=== PATIENT | male | born 1990 | race Caucasian/White ===

== ENCOUNTER 2017-01-05 23:16 | Inpatient (IN) | payer SELFPAY ==
[~2017-01-05] VITALS: Ht 182.9 cm; Wt 206.4 kg
[2017-01-06] VITALS (55 sets, daily range): BP systolic 120–166; BP diastolic 29–100
[2017-01-06 00:45] LABS: Basophils # (auto) 0.1 uL; Basophils % (auto) 0.6 % (0.0-2.0); CONDITION Y; DEFINITIVE SEE PRINTOUT; Eosinophils # (auto) 0.3 uL; Eosinophils % (auto) 2.3 % (0.0-7.0); Hematocrit 46.2 % (41.0-53.0); Hemoglobin 15.3 g/dL (13.5-17.5); Lymphocytes # (auto) 2.5 uL; Lymphocytes % (auto) 19.7 % (10.0-50.0); Mean Corpuscular Hemoglobin 26.1 pg (28.0-32.0); Mean Corpuscular Hgb Conc. 33.1 g/dL (32.0-36.0); Mean Corpuscular Volume 78.8 fL (80.0-100.0); Mean Platelet Volume 12.7 fL (7.4-10.4); Monocytes # (auto) 0.5 uL; Monocytes % (auto) 3.9 % (0.0-12.0); Neutrophils # (auto) 9.2 uL; Neutrophils % (auto) 73.5 % (37.0-80.0); Platelet Count (auto) 187 10^3/uL (140-450); Red Cell Distribution Width 17.1 % (11.6-16.0); White Blood Cell 12.5 10^3/uL (4.4-10.8)
[2017-01-06 00:59] LABS: Albumin 3.3 g/dL (3.4-5.0); BUN/Creatinine Ratio 8.9; Calcium 8.1 mg/dL (8.5-10.1)
[2017-01-06] MEDS ORDERED: SODIUM CHLORIDE 0.9% 1,000 ML IV ONE ×2 (01:00→01:15)
[2017-01-06 01:01] LABS: Bilirubin, Total 1.1 mg/dL (0.2-1.0); Total Protein 7.5 g/dL (6.4-8.2)
[2017-01-06 01:06] LABS: Potassium 2.5 mmol/L (3.5-5.1)
[2017-01-06] MEDS ORDERED: POTASSIUM CHL 20 Meq TABLET PO ONE ×2 (01:15→19:30)
[2017-01-06] MEDS: POTASSIUM CHL 20MEQ/100ML 100 ML IV SCH ×4 (01:30→14:01)
[2017-01-06 02:02] LABS: Urine Bilirubin Negative (Negative); Urine Blood Negative /uL (Negative); Urine Color Yellow (Yellow); Urine Glucose Normal (Normal); Urine Ketone Negative (Negative); Urine Nitrite Negative (Negative); Urine RBC 2 /hpf (0 - 3); Urine Urobilinogen Normal (Negative)
[2017-01-06] MEDS ORDERED: cloNIDine HCL 0.1 MG TAB PO ONE (03:15)
[2017-01-06] MEDS ORDERED: hydrALAZINE HCL 20 MG/ML VL IV ONE (05:30)
[2017-01-06] MEDS ORDERED: NITROGLYCERIN 0.4 MG SL TAB SL PRN (06:00)
[2017-01-06] MEDS ORDERED: POTASSIUM CHL 20MEQ/100ML 100 ML IV ONE ×2 (06:00→20:15)
[2017-01-06] MEDS ORDERED: MORPHINE SULF INJ 2 MG/ML SYRINGE 1ML IV PRN ×2 (06:00→06:15)
[2017-01-06] MEDS ORDERED: ONDANSETRON HCL 4 MG/2 ML VIAL IV PRN (06:15)
[2017-01-06] MEDS ORDERED: HYDROcodone-ACET 5/325MG TAB PO PRN (06:15)
[2017-01-06] MEDS ORDERED: ACETAMINOPHEN 500 MG TAB PO PRN (06:15)
[2017-01-06] MEDS ORDERED: NICARDIPINE 25MG/250ML BAG KIT 250 ML IV ONE (06:25)
[2017-01-06] MEDS: NICARDIPINE 25MG/250ML BAG KIT 250 ML IV SCH ×3 (06:45→16:22)
[2017-01-06] MEDS: cloNIDine HCL 0.1 MG TAB PO PRN (17:41)
[2017-01-07] VITALS (38 sets, daily range): BP systolic 131–166; BP diastolic 76–111
[2017-01-07 01:25] LABS: B-Type Natriuretic Peptide 36.6 pg/mL (0-100); Temperature: 22.2 C (20.0-25.0)
[2017-01-07] MEDS: NICARDIPINE 25MG/250ML BAG KIT 250 ML IV SCH ×3 (02:22→07:22)
[2017-01-07 02:51] LABS: Basophils # (auto) 0.1 uL; Basophils % (auto) 0.6 % (0.0-2.0); CONDITION Y; DEFINITIVE SEE PRINTOUT; Eosinophils # (auto) 0.4 uL; Eosinophils % (auto) 4.7 % (0.0-7.0); Hematocrit 44.9 % (41.0-53.0); Hemoglobin 14.7 g/dL (13.5-17.5); Lymphocytes # (auto) 2.4 uL; Lymphocytes % (auto) 26.5 % (10.0-50.0); Mean Corpuscular Hgb Conc. 32.7 g/dL (32.0-36.0); Mean Corpuscular Volume 79.5 fL (80.0-100.0); Mean Platelet Volume 11.1 fL (7.4-10.4); Monocytes # (auto) 0.5 uL; Neutrophils # (auto) 5.8 uL; Neutrophils % (auto) 63.2 % (37.0-80.0); Platelet Count (auto) 191 10^3/uL (140-450); Red Cell Distribution Width 17.5 % (11.6-16.0); White Blood Cell 9.2 10^3/uL (4.4-10.8)
[2017-01-07 03:28] LABS: BUN/Creatinine Ratio 9.2; Calcium 7.8 mg/dL (8.5-10.1)
[2017-01-07 03:39] LABS: Potassium 3.6 mmol/L (3.5-5.1)
[2017-01-07] MEDS: cloNIDine HCL 0.1 MG TAB PO PRN ×2 (04:12→17:17)
[2017-01-07] MEDS ORDERED: POTASSIUM CHL 20MEQ/100ML 100 ML IV ONE (04:15)
[2017-01-08 05:00] VITALS: BP 161/98
[2017-01-08] MEDS: cloNIDine HCL 0.1 MG TAB PO PRN ×4 (05:59→21:45)
[2017-01-08 08:00] VITALS: BP 171/119
[2017-01-08 09:00] VITALS: BP 171/119
[2017-01-08 13:00] VITALS: BP 153/102
[2017-01-08] MEDS ORDERED: LISINOPRIL 10 MG TAB PO ONE (14:45)
[2017-01-08 17:12] VITALS: BP 159/101
[2017-01-08 21:00] VITALS: BP 167/102
[2017-01-09 05:00] VITALS: BP 159/102
[2017-01-09] MEDS: cloNIDine HCL 0.1 MG TAB PO PRN (05:11)
[2017-01-09 06:37] LABS: Calcium 8.5 mg/dL (8.5-10.1); Potassium 3.1 mmol/L (3.5-5.1)
[2017-01-09 06:39] LABS: BUN/Creatinine Ratio 12.9
[2017-01-09] MEDS ORDERED: POTASSIUM CHL 20 Meq TABLET PO ONE (08:45)
[2017-01-09] MEDS ORDERED: LISINOPRIL 10 MG TAB PO SCH (10:00)
[2017-01-09] MEDS ORDERED: LISI10TA6 PO (10:25)
[2017-01-09] MEDS ORDERED: CLO01T PO (10:25)
[2017-01-09 11:44] VITALS: BP 154/105
== END 2017-01-09 13:05 | disposition home or self-care (01) | DRG 558 ==
LOC: ER 23:24 → TELE 23:25 → ICU WEST 01-06 09:56 → TELE-WESTW 01-07 10:08
PROVIDERS: ADMIT Nurse Practitioner Family; ATTEND Internal Medicine
DX: M62.82 Rhabdomyolysis (principal); I11.9 Hypertensive heart disease without heart failure; E44.1 Mild protein-calorie malnutrition; E66.2 Morbid (severe) obesity with alveolar hypoventilation; E87.1 Hypo-osmolality and hyponatremia; Z68.44 Body mass index [BMI] 60.0-69.9, adult; E87.6 Hypokalemia; K59.00 Constipation, unspecified; F12.90 Cannabis use, unspecified, uncomplicated; R26.2 Difficulty in walking, not elsewhere classified; F17.210 Nicotine dependence, cigarettes, uncomplicated; R33.9 Retention of urine, unspecified; Z88.2 Allergy status to sulfonamides
CPT/HCPCS: 36415; 51702; 71010; 80048; 80053; 81001; 82550; 82947; 83036; 83690; 83880; 84132; 85025; 85379; 87081; 93005; 96361; 96365; 97110; 97116; 97163; 97530; J3480

== ENCOUNTER 2022-06-16 19:26 | Inpatient (IN) | payer MEDICAID ==
[~2022-06-16] VITALS: Ht 177.8 cm; Wt 223.6 kg
[~2022-06-16 19:26] MED LIST: CLO01T PO; LISI-716 PO
[2022-06-16] MEDS ORDERED: SODIUM CHLORIDE 0.9% 1,000 ML IV ONE (20:15)
[2022-06-16 21:01] LABS: Basophils # (auto) 0.1 10 ^3/uL (0-0.2); Eosinophils # (auto) 0.2 10 ^3/uL (0-0.8); Lymphocytes # (auto) 2.7 10 ^3/uL (0.4-5.4)
[2022-06-16 21:07] LABS: Basophils % (auto) 0.6 % (0.0-2.0); Hematocrit 45.7 % (41.0-53.0); Hemoglobin 14.8 g/dL (13.5-17.5); Lymphocytes % (auto) 22.5 % (10.0-50.0); Mean Corpuscular Hemoglobin 24.8 pg (28.0-32.0); Mean Corpuscular Hgb Conc. 32.4 g/dL (32.0-36.0); Mean Corpuscular Volume 76.6 fL (80.0-100.0); Monocytes # (auto) 0.6 10 ^3/uL (0-1.3); Monocytes % (auto) 4.9 % (0.0-12.0); Neutrophils # (auto) 8.3 10 ^3/uL (1.6-8.6); Nucleated Red Blood Cells % 0.2 %; Red Blood Cells 5.97 10^6/uL (4.5-5.90); White Blood Cell 11.8 10^3/uL (4.4-10.8)
[2022-06-16 21:24] LABS: Albumin 3.5 g/dL (3.4-5.0); Calcium 9.2 mg/dL (8.5-10.1); Magnesium 2.1 mg/dL (1.6-2.6)
[2022-06-16 21:26] LABS: BUN/Creatinine Ratio 8.4
[2022-06-16 22:05] LABS: Potassium 2.8 mmol/L (3.5-5.1)
[2022-06-16] MEDS ORDERED: POTASSIUM CHL 20 Meq TABLET PO ONE (22:15)
[2022-06-16 22:27] LABS: Bilirubin, Total 0.6 mg/dL (0.2-1.0); Total Protein 8.4 g/dL (6.4-8.2)
[2022-06-17] MEDS ORDERED: HYDROcodone-ACET 5/325MG TAB PO PRN (05:30)
[2022-06-17] MEDS ORDERED: amLODIPine BESYLATE 5 MG TAB PO ONE (05:30)
[2022-06-17] MEDS ORDERED: DOCUSATE SOD 100 MG CAP PO PRN (05:30)
[2022-06-17] MEDS ORDERED: ONDANSETRON HCL 4 MG/2 ML VIAL IV PRN (05:30)
[2022-06-17] MEDS ORDERED: ACETAMINOPHEN 325 MG TAB PO PRN (05:30)
[2022-06-17] MEDS: SODIUM CHLOR 0.9% PF (SALINE LOCK) 10ML VIAL/SYR IV SCH ×3 (06:14→22:03)
[2022-06-17] MEDS ORDERED: NITROGLYCERIN 0.4 MG SL TAB SL PRN (06:15)
[2022-06-17] MEDS ORDERED: MORPHINE SULFATE INJ 2 MG/ml SYRG IV PRN (06:15)
[2022-06-17 06:28] LABS: Basophils # (auto) 0.1 10 ^3/uL (0-0.2); Hemoglobin 14.5 g/dL (13.5-17.5); Lymphocytes # (auto) 2.6 10 ^3/uL (0.4-5.4); Lymphocytes % (auto) 25.1 % (10.0-50.0); Mean Corpuscular Hemoglobin 24.8 pg (28.0-32.0); Monocytes # (auto) 0.3 10 ^3/uL (0-1.3); White Blood Cell 10.2 10^3/uL (4.4-10.8)
[2022-06-17 06:31] LABS: Basophils % (auto) 0.6 % (0.0-2.0); Eosinophils # (auto) 0.2 10 ^3/uL (0-0.8); Eosinophils % (auto) 2.4 % (0.0-7.0); Hematocrit 44.6 % (41.0-53.0); Mean Corpuscular Hgb Conc. 32.5 g/dL (32.0-36.0); Mean Corpuscular Volume 76.2 fL (80.0-100.0); Monocytes % (auto) 3.1 % (0.0-12.0); Neutrophils % (auto) 68.8 % (37.0-80.0); Nucleated Red Blood Cells % 0.1 %; Red Blood Cells 5.85 10^6/uL (4.5-5.90); Red Cell Distribution Width 17.1 % (11.8-14.3)
[2022-06-17 07:19] LABS: Albumin 3.6 g/dL (3.4-5.0); Calcium 9.1 mg/dL (8.5-10.1)
[2022-06-17 07:23] LABS: Bilirubin, Total 0.8 mg/dL (0.2-1.0); Total Protein 8.8 g/dL (6.4-8.2)
[2022-06-17 08:02] LABS: Potassium 2.4 mmol/L (3.5-5.1)
[2022-06-17] MEDS ORDERED: POTASSIUM CHL 20 Meq TABLET PO ONE ×3 (08:30→19:00)
[2022-06-17] MEDS: ASPirin 81 mg TAB PO SCH (09:33)
[2022-06-17] MEDS: amLODIPine BESYLATE 5 MG TAB PO SCH (09:33)
[2022-06-17] MEDS: ENOXAPARIN SOD 40 MG/0.4 ML SYRINGE SC SCH (09:34)
[2022-06-17] MEDS: hydrALAZINE HCL 20 MG/ML VL IV PRN ×2 (10:43→20:16)
[2022-06-17 15:13] LABS: Urine Bacteria NONE SEEN /hpf (None Seen); Urine Blood Negative /uL (Negative); Urine Specific Gravity 1.007 (1.001-1.035); Urine WBC <1 /hpf (0 - 3)
[2022-06-17 15:21] LABS: Alcohol, Urine < 3.0 mg/dL (0-10); Amphetamine Screen, Urine NEGATIVE (NEGATIVE); Barbiturate Scree,Urine NEGATIVE (NEGATIVE); Benzodiazephine Screen, Urine NEGATIVE (NEGATIVE); Cannabinoid Screen, Urine NEGATIVE (NEGATIVE); Cocaine Screen, Urine NEGATIVE (NEGATIVE); Opiate Scree,Urine NEGATIVE (NEGATIVE); Phencyclidine Screen, Urine NEGATIVE (NEGATIVE)
[2022-06-17 18:32] LABS: BUN/Creatinine Ratio 9.8; Calcium 9.1 mg/dL (8.5-10.1)
[2022-06-17 18:41] LABS: Potassium 2.3 mmol/L (3.5-5.1)
[2022-06-17] MEDS ORDERED: POTASSIUM CHL 20MEQ/100ML 100 ML IV ONE (19:00)
[2022-06-17] MEDS ORDERED: LIDO1PAD55 TOP (21:38)
[2022-06-17] MEDS ORDERED: POTA-180 PO (21:38)
[2022-06-17] MEDS ORDERED: NIFE1TAB30 PO (21:38)
[2022-06-17] MEDS ORDERED: LOSA-39 PO (21:38)
[2022-06-17 22:00] VITALS: BP 192/112
[2022-06-17] MEDS: cloNIDine HCL 0.1 MG TAB PO SCH (22:03)
[2022-06-17] MEDS: D5W/SOD CHL 0.45%/KCL 40MEQ 1,000 ML IV SCH (23:23)
[2022-06-18 05:00] VITALS: BP 179/109
[2022-06-18] MEDS: D5W/SOD CHL 0.45%/KCL 40MEQ 1,000 ML IV SCH ×2 (05:00→15:00)
[2022-06-18] MEDS: hydrALAZINE HCL 20 MG/ML VL IV PRN ×2 (05:05→12:16)
[2022-06-18] MEDS: cloNIDine HCL 0.1 MG TAB PO SCH ×3 (05:56→21:56)
[2022-06-18] MEDS: SODIUM CHLOR 0.9% PF (SALINE LOCK) 10ML VIAL/SYR IV SCH ×3 (05:57→21:58)
[2022-06-18 06:54] LABS: Basophils # (auto) 0 10 ^3/uL (0-0.2); Eosinophils # (auto) 0.3 10 ^3/uL (0-0.8); Nucleated Red Blood Cells % 0.1 %
[2022-06-18 06:56] LABS: Basophils % (auto) 0.4 % (0.0-2.0); Eosinophils % (auto) 3.6 % (0.0-7.0); Hematocrit 40.5 % (41.0-53.0); Hemoglobin 13.2 g/dL (13.5-17.5); Lymphocytes # (auto) 1.7 10 ^3/uL (0.4-5.4); Lymphocytes % (auto) 20.2 % (10.0-50.0); Mean Corpuscular Hemoglobin 24.7 pg (28.0-32.0); Mean Corpuscular Hgb Conc. 32.5 g/dL (32.0-36.0); Mean Corpuscular Volume 76.1 fL (80.0-100.0); Monocytes # (auto) 0.5 10 ^3/uL (0-1.3); Monocytes % (auto) 5.5 % (0.0-12.0); Neutrophils % (auto) 70.3 % (37.0-80.0); Red Blood Cells 5.33 10^6/uL (4.5-5.90); Red Cell Distribution Width 16.9 % (11.8-14.3); White Blood Cell 8.6 10^3/uL (4.4-10.8)
[2022-06-18 07:09] LABS: Albumin 3.1 g/dL (3.4-5.0); Calcium 8.4 mg/dL (8.5-10.1)
[2022-06-18 07:14] LABS: BUN/Creatinine Ratio 9.2; Total Protein 7.7 g/dL (6.4-8.2)
[2022-06-18 07:22] LABS: Potassium 2.5 mmol/L (3.5-5.1)
[2022-06-18 08:40] VITALS: BP 150/87
[2022-06-18] MEDS ORDERED: POTASSIUM CHL 20 Meq TABLET PO ONE ×3 (09:30→19:00)
[2022-06-18] MEDS ORDERED: SPIRONOLACTONE 25 MG TAB PO SCH (10:00)
[2022-06-18] MEDS: amLODIPine BESYLATE 5 MG TAB PO SCH (10:12)
[2022-06-18] MEDS: ASPirin 81 mg TAB PO SCH (10:12)
[2022-06-18] MEDS: ENOXAPARIN SOD 40 MG/0.4 ML SYRINGE SC SCH (10:13)
[2022-06-18] MEDS: POTASSIUM CHL 20MEQ/100ML 100 ML IV SCH ×2 (10:29→12:23)
[2022-06-18 11:49] VITALS: BP 152/102
[2022-06-18] MEDS: SPIRONOLACTONE 25 MG TAB PO SCH ×2 (16:30→21:55)
[2022-06-18] MEDS: POTASSIUM CHL 20 Meq TABLET PO SCH ×2 (16:31→21:55)
[2022-06-18 16:53] VITALS: BP 175/91
[2022-06-18] MEDS ORDERED: LISINOPRIL 20 MG TAB PO ONE (18:45)
[2022-06-18 22:00] VITALS: BP 149/89
[2022-06-19] MEDS: D5W/SOD CHL 0.45%/KCL 40MEQ 1,000 ML IV SCH ×2 (01:00→05:57)
[2022-06-19 05:00] VITALS: BP 134/71
[2022-06-19] MEDS: POTASSIUM CHL 20 Meq TABLET PO SCH ×2 (05:50→15:09)
[2022-06-19] MEDS: SPIRONOLACTONE 25 MG TAB PO SCH ×2 (05:51→15:08)
[2022-06-19] MEDS: cloNIDine HCL 0.1 MG TAB PO SCH (05:51)
[2022-06-19] MEDS: SODIUM CHLOR 0.9% PF (SALINE LOCK) 10ML VIAL/SYR IV SCH ×2 (05:55→14:00)
[2022-06-19 08:00] VITALS: BP 152/75
[2022-06-19 08:52] LABS: Potassium 3.5 mmol/L (3.5-5.1)
[2022-06-19 08:58] LABS: BUN/Creatinine Ratio 13.5; Calcium 8.8 mg/dL (8.5-10.1); Magnesium 2.7 mg/dL (1.6-2.6)
[2022-06-19 09:30] VITALS: BP 152/75
[2022-06-19 09:51] VITALS: BP 152/75
[2022-06-19] MEDS ORDERED: LISINOPRIL 20 MG TAB PO SCH (10:00)
[2022-06-19] MEDS: ASPirin 81 mg TAB PO SCH (11:16)
[2022-06-19] MEDS: amLODIPine BESYLATE 5 MG TAB PO SCH (11:16)
[2022-06-19] MEDS: ENOXAPARIN SOD 40 MG/0.4 ML SYRINGE SC SCH (11:17)
[2022-06-19] MEDS ORDERED: cloNIDine HCL 0.1 MG TAB PO PRN (12:00)
[2022-06-19 12:30] VITALS: BP 151/92
[2022-06-19 12:32] LABS: Cholesterol 89 mg/dL (< 200); Triglycerides 78 mg/dL (< 150)
[2022-06-19 12:35] LABS: HDL Cholesterol 25 mg/dL (40-59); LDL Cholesterol 60 mg/dL (< 100)
[2022-06-19] MEDS ORDERED: hydrALAZINE HCL 25 MG TAB PO SCH (14:00)
[2022-06-19 15:27] VITALS: BP 144/82
[2022-06-20] MEDS ORDERED: NIFEdipine ER 30 MG TAB PO SCH (10:00)
[2022-06-20] MEDS ORDERED: LOSARTAN POTASSIUM 50 MG TAB PO SCH (10:00)
== END 2022-06-19 17:44 | disposition home or self-care (01) | DRG 199 ==
LOC: ER 19:26 → TELE 06-17 06:10 → TELE-WESTW 06-17 21:06
PROVIDERS: ADMIT Nurse Practitioner Family; ATTEND Nurse Practitioner Acute Care
DX: I16.0 Hypertensive urgency (principal); Z68.45 Body mass index [BMI] 70 or greater, adult; G47.33 Obstructive sleep apnea (adult) (pediatric); E66.01 Morbid (severe) obesity due to excess calories; E87.6 Hypokalemia; I89.0 Lymphedema, not elsewhere classified; I10 Essential (primary) hypertension; J98.11 Atelectasis; F17.210 Nicotine dependence, cigarettes, uncomplicated; J45.909 Unspecified asthma, uncomplicated; Z79.899 Other long term (current) drug therapy; R79.89 Other specified abnormal findings of blood chemistry; Z88.2 Allergy status to sulfonamides; Z20.822 Contact with and (suspected) exposure to COVID-19
CPT/HCPCS: 36415; 71045; 78582; 80048; 80053; 80061; 80307; 80320; 81001; 82088; 82533; 83036; 83605; 83690; 83735; 83880; 84244; 84443; 84484; 85025; 85379; 87040; 87426; 93970; 96360; G0378; J3480